=== PATIENT | male | born 1985 | race Caucasian/White ===

== ENCOUNTER 2019-09-23 02:30 | Emergency (ER) | payer OTHER ==
[2019-09-23 04:28] VITALS: BP 108/84
--- NOTE | 2019-09-23 04:46 | ER Document Report ---
HPI - HPI Time Seen by Provider: 09/23/19 04:30 Pain Level: 4 Notes: Patient is a 34-year-old male who presents for reevaluation after he noticed increased swelling to his left knee status post injury yesterday around lunchtime. Patient states that he got caught up in a ladder and fell off landing on his feet and his left wrist area. Patient states he denies head or lose conscious. Patient was seen at an urgent care and had x-rays performed which he brought the reports and discs of. It does note a chip avulsion fracture of the dorsal triquetrum of the left wrist as well as a comminuted mildly displaced fracture of the patella of the left knee, joint effusion of the knee, and possible small avulsion along the anterior tibial plateau. He was placed in a cock-up splint for his wrist as well as a knee immobilizer. Patient states that he took his knee immobilizer off and his knee swelled up further and he got worried so he came here for evaluation. Patient is also complaining of increased pain and he was not sent home on any medicines for pain. No other concerns or complaints. He is able to eat and drink without difficulty. He is urinating normally. Denies any headache, fever, head injury, neck pain, changes in vision/speech/mentation/hearing, URI, sore throat, chest pain, palpitations, syncope, cough, shortness of breath, wheeze, dyspnea, abdominal pain, nausea/vomiting/diarrhea, urinary retention, dysuria, hematuria, loss of control of bowel or bladder, numbness/tingling, saddle anesthesia, muscle paralysis/weakness, or rash. - ROS Systems Reviewed and Negative: Yes All other systems reviewed and negative - CONSTITUTIONAL Constitutional: DENIES: Fever, Chills Past Medical History - Social History Smoking Status: Current Every Day Smoker Frequency of alcohol use: None Drug Abuse: None Family History: Reviewed & Not Pertinent Patient has suicidal ideation: No Patient has homicidal ideation: No Past Surgical History: Reports: Hx Oral Surgery, Hx Tonsillectomy - Immunizations Hx Diphtheria, Pertussis, Tetanus Vaccination: Yes Vertical Provider Document - CONSTITUTIONAL Agree With Documented VS: Yes Notes: PHYSICAL EXAMINATION: GENERAL: Well-appearing, well-nourished and in no acute distress. HEAD: Atraumatic, normocephalic. No penn sign. EYES: Pupils equal round and reactive to light, extraocular movements intact, sclera anicteric, conjunctiva are normal. No raccoon eyes. ENT: Nares patent and without discharge. oropharynx clear without exudates. No tonsilar hypertrophy or erythema. Moist mucous membranes. NECK: Normal range of motion, supple without lymphadenopathy. No midline tenderness. LUNGS: Breath sounds clear to auscultation bilaterally and equal. No wheezes rales or rhonchi. HEART: Regular rate and rhythm without murmurs, rubs, gallops. ABDOMEN: Soft, nontender, nondistended abdomen. No guarding, no rebound. Normal bowel sounds present. No CVA tenderness bilaterally. Musculoskeletal: Left knee: in immobilizer. + swelling and effusion noted. + tenderness to the patella. Compartments are soft. No foot drop. Pulses 2+. Sensation intact. FROM to passive/active at the ankle. Lt wrist: + tenderness to the distal wrist area. N/V intact distal. FROM. Strength 5+/5. Extremities: No cyanosis, clubbing, or edema b/l. Peripheral pulses 2+. Capillary refill less than 3 seconds. NEUROLOGICAL: Cranial nerves grossly intact. Normal speech. Normal sensory, motor exams otherwise PSYCH: Normal mood, normal affect. SKIN: Warm, Dry, normal turgor, no rashes or lesions noted. - INFECTION CONTROL TRAVEL OUTSIDE OF THE [place] IN LAST 30 DAYS: No Course - Re-evaluation Re-evalutation: 09/23/19 04:44 Patient is an afebrile, well-hydrated, 34-year-old male who presents to the ED with a fracture to the distal Lt wrist, possible avulsion fracture of the tibial plateau of the left knee, and comminuted mild displaced fracture of the left pa tella. Vitals are acceptable without any significant tachycardia, tachypnea, or hypoxia. PE is otherwise unremarkable for any neurovascular compromise, obvious tendon/ligament rupture, open fracture, septic joint. Patient is currently in a knee immobilizer hand cock-up splint. He does have crutches with him. Patient is nontoxic-appearing. No other labs or imaging warranted at this time based on H&P. Conservative measures otherwise for symptoms. Recheck with your PCM in 3- 5 days. Call orthopedics to schedule an appointment for further evaluation and management. Return to the ED with any worsening/concerning symptoms otherwise as reviewed in discharge. Patient is in agreement. - Vital Signs Vital signs: Temp Pulse Resp BP Pulse Ox 98.5 F 79 15 108/84 96 09/23/19 04:25 09/23/19 04:25 09/23/19 04:25 09/23/19 04:25 09/23/19 04:25 Discharge - Discharge Clinical Impression: Left patella fracture Qualifiers: Encounter type: initial encounter Fracture type: closed Fracture morphology: comminuted Fracture alignment: displaced Qualified Code(s): S82.042A - Displaced comminuted fracture of left patella, initial encounter for closed fracture Fracture of triquetrum of left wrist Qualifiers: Encounter type: initial encounter Fracture type: closed Fracture alignment: nondisplaced Qualified Code(s): S62.115A - Nondisplaced fracture of triquetrum [cuneiform] bone, left wrist, initial encounter for closed fracture Condition: Stable Disposition: HOME, SELF-CARE Additional Instructions: Rest, Ice, Compression, Elevation Use crutches/splint as directed Tylenol/ibuprofen as needed F/u with your PCP in 3-5 days for a recheck Call orthopedics tomorrow to schedule an appointment for further evaluation and management Return to the ED with any worsening symptoms and/or development of fever, headache, chest pain, palpitations, syncope, shortness of breath, trouble breathing, abdominal pain, n/v/d, muscle weakness/paralysis, numbness/tingling, swelling, redness, or other worsening symptoms that are concerning to you. Prescriptions: Morphine Sulfate [Morphine Ir 15 Mg Tablet] 15 mg PO TID #12 tablet Forms: Smoking Cessation Education Referrals: [facility] [Provider Group] - Follow up as needed PADMINI KLEIN JR, DO [ACTIVE PROVISIONAL STAFF] - Follow up in 3-5 days
== END 2019-09-23 05:00 | disposition home or self-care (01) ==
LOC: ER 02:30
DX: S62.115A Nondisplaced fracture of triquetrum [cuneiform] bone, left wrist, initial encounter for closed fracture (principal); S82.042A Displaced comminuted fracture of left patella, initial encounter for closed fracture; M25.462 Effusion, left knee; W11.XXXA Fall on and from ladder, initial encounter; Y99.0 Civilian activity done for income or pay; F17.200 Nicotine dependence, unspecified, uncomplicated
CPT/HCPCS: 99283